=== PATIENT | male | born 1945 | race Caucasian/White ===

== ENCOUNTER 2018-02-21 16:17 | Inpatient (IN) | payer MEDICARE, OTHER ==
[2018-02-21 16:50] LABS: ADD MAN DIFF? NO
[2018-02-21 16:57] LABS: WHITE BLOOD COUNT 11.5 10^3/ul (4.8-10.8)
[2018-02-21 16:57] LABS: BASOPHILS % 0.3 % (0.0-2.0); EOSINOPHILS # 0.3 10^3/ul (0.0-0.5); EOSINOPHILS % 2.4 % (0.0-7.0); HEMATOCRIT 35.7 % (37.0-47.0); HEMOGLOBIN 11.7 g/dl (12.0-16.0); LYMPHOCYTES # 0.8 10^3/ul (0.8-2.9); LYMPHOCYTES % 6.6 % (15.0-51.0); MEAN CORPUSCULAR HEMOGLOBIN 32.6 pg (29.0-33.0); MEAN CORPUSCULAR HGB CONC 32.8 g/dl (32.0-37.0); MEAN CORPUSCULAR VOLUME 99.4 fl (82.0-101.0); MEAN PLATELET VOLUME 10.9 fl (7.4-10.4); MONOCYTE # 0.7 10^3/ul (0.3-0.9); MONOCYTES % 6.2 % (0.0-11.0); NEUTROPHIL # 9.6 10^3/ul (1.6-7.5); NEUTROPHILS % 84.2 % (39.0-77.0); PLATELET COUNT 144 10^3/UL (140-415); RED BLOOD COUNT 3.59 10^6/ul (4.20-5.40); RED CELL DISTRIBUTION WIDTH 12.4 % (11.5-14.5)
[2018-02-21] MEDS: CEFEPIME 2GM/50 ML (PMX) 50 ML IVPB (17:01)
[2018-02-21] MEDS: SODIUM CHLORIDE 0.9% 1L BAG IV* (17:01)
[2018-02-21 17:17] LABS: PROTIME 19.4 Sec (11.9-14.9); PT RATIO 1.5
[2018-02-21 17:18] LABS: PARTIAL THROMBOPLASTIN TIME 36.1 Sec (25.0-35.0)
[2018-02-21 17:18] LABS: LACTIC ACID 2.3 mmol/L (0.5-2.0)
[2018-02-21] MEDS: VANCOMYCIN 1 GM (PMX) 250 ML IVPB (17:46)
[2018-02-21] MEDS: ACETAMINOPHEN 325 MG TAB PO (17:59)
[2018-02-21 18:35] LABS: ALANINE AMINOTRANSFERASE 15 IU/L (13-69); ALBUMIN 3.7 g/dl (3.3-4.9); ALKALINE PHOSPHATASE 73 IU/L (42-121); ANION GAP 15 (8-16); ASPARTATE AMINO TRANSFERASE 14 IU/L (15-46); BILIRUBIN,INDIRECT 0.5 mg/dl (0-1.1); BILIRUBIN,TOTAL 0.5 mg/dl (0.2-1.3); BLOOD UREA NITROGEN 32 mg/dl (7-20); CARBON DIOXIDE 26 mmol/L (21-31); CHLORIDE 104 mmol/L (97-110); CREATININE 0.99 mg/dl (0.61-1.24); GLUCOSE 189 mg/dl (70-220); POTASSIUM 4.7 mmol/L (3.5-5.1); SODIUM 140 mmol/L (135-144); TOTAL PROTEIN 7.4 g/dl (6.1-8.1)
[2018-02-21 18:46] LABS: TROPONIN-I < 0.012 ng/ml (0.000-0.120)
[2018-02-21 21:20] LABS: URINE PH (Dip) POC 5.5 (5.0-8.5)
[2018-02-21 21:20] LABS: URINE BLOOD (Dip) POC 2+ (NEGATIVE); URINE KETONES (Dip) POC Negative (NEGATIVE); URINE LEUKOCYTE EST (Dip) POC Negative (NEGATIVE); URINE NITRITE (Dip) POC Negative (NEGATIVE); URINE TOTAL PROTEIN POC Negative (NEGATIVE)
[2018-02-21 22:01] LABS: LACTIC ACID 1.8 mmol/L (0.5-2.0)
[2018-02-21 22:09] LABS: ADD UMIC YES; UR ASCORBIC ACID NEGATIVE (NEGATIVE); UR BILIRUBIN (Dip) NEGATIVE (NEGATIVE); UR BLOOD (Dip) 2+ mg/dL (NEGATIVE); UR CLARITY CLEAR (CLEAR); UR COLOR YELLOW (YELLOW); UR GLUCOSE (Dip) 2+ mg/dL (NEGATIVE); UR KETONES (Dip) NEGATIVE (NEGATIVE); UR LEUKOCYTE ESTERASE (Dip) NEGATIVE Leu/ul (NEGATIVE); UR NITRITE (Dip) NEGATIVE (NEGATIVE); UR RBC 44 /HPF (0-5); UR SPECIFIC GRAVITY (Dip) 1.017 (1.003-1.030); UR TOTAL PROTEIN (Dip) NEGATIVE (NEGATIVE); UR UROBILINOGEN (Dip) NEGATIVE (NEGATIVE); UR WBC 0 /HPF (0-5)
[2018-02-21] MEDS ORDERED: SOD CHLORIDE 0.9% 1,000 ML IV (22:32)
[2018-02-21] MEDS: SOD CHLORIDE 0.9% 1,000 ML IV (22:40)
[2018-02-21] MEDS ORDERED: ONDANSETRON 4 MG INJ IV ×2 (23:00)
[2018-02-21] MEDS ORDERED: NACL 0.9% 3 ML SYG IV (23:00)
[2018-02-21] MEDS ORDERED: ACETAMINOPHEN 325 MG TAB PO ×2 (23:00)
[2018-02-21] MEDS ORDERED: morphine 2 MG INJ IV (23:00)
[2018-02-21] MEDS ORDERED: VANCOMYCIN IV PER PHARMACY XX (23:30)
[2018-02-22] MEDS: VANCOMYCIN 1 GM 250 ML IVPB ×2 (04:00→16:57)
[2018-02-22] MEDS: PIPER-TAZO 3.375 GM IV (PMX) 100 ML IVPB ×4 (05:25→16:57)
[2018-02-22 06:10] LABS: ADD MAN DIFF? NO
[2018-02-22 06:20] LABS: WHITE BLOOD COUNT 9.5 10^3/ul (4.8-10.8)
[2018-02-22 06:20] LABS: ABNORMAL IP MESSAGE 1; BASOPHILS % 0.3 % (0.0-2.0); EOSINOPHILS # 0.1 10^3/ul (0.0-0.5); EOSINOPHILS % 1.2 % (0.0-7.0); HEMATOCRIT 33.9 % (42.0-52.0); HEMOGLOBIN 11.1 g/dl (14.0-18.0); LYMPHOCYTES # 0.6 10^3/ul (0.8-2.9); LYMPHOCYTES % 5.9 % (15.0-51.0); MEAN CORPUSCULAR HEMOGLOBIN 32.6 pg (29.0-33.0); MEAN CORPUSCULAR HGB CONC 32.7 g/dl (32.0-37.0); MEAN CORPUSCULAR VOLUME 99.7 fl (82.0-101.0); MEAN PLATELET VOLUME 10.3 fl (7.4-10.4); MONOCYTE # 0.7 10^3/ul (0.3-0.9); MONOCYTES % 7.6 % (0.0-11.0); NEUTROPHILS % 84.5 % (39.0-77.0); PLATELET COUNT 129 10^3/UL (140-415); POSITIVE DIFF @See below; RED CELL DISTRIBUTION WIDTH 12.4 % (11.5-14.5)
[2018-02-22 06:54] LABS: ALANINE AMINOTRANSFERASE 14 IU/L (13-69); ALBUMIN 3.7 g/dl (3.3-4.9); ALBUMIN/GLOBULIN RATIO 1.08; ALKALINE PHOSPHATASE 72 IU/L (42-121); ANION GAP 11 (8-16); ASPARTATE AMINO TRANSFERASE 16 IU/L (15-46); BILIRUBIN,INDIRECT 0.6 mg/dl (0-1.1); BILIRUBIN,TOTAL 0.6 mg/dl (0.2-1.3); BLOOD UREA NITROGEN 25 mg/dl (7-20); CALCIUM 8.8 mg/dl (8.4-10.2); CARBON DIOXIDE 27 mmol/L (21-31); CHLORIDE 107 mmol/L (97-110); CHOL/HDL RATIO 5.6 RATIO; CHOLESTEROL 185 mg/dl (100-200); CREATININE 0.88 mg/dl (0.61-1.24); GLUCOSE 155 mg/dl (70-220); HDL CHOLESTEROL 33 mg/dl (31-75); LDL CHOLESTEROL,CALCULATED 136 mg/dl; MAGNESIUM 1.7 mg/dl (1.7-2.5); POTASSIUM 4.6 mmol/L (3.5-5.1); SODIUM 140 mmol/L (135-144); TOTAL PROTEIN 7.1 g/dl (6.1-8.1); TRIGLYCERIDES 81 mg/dl (0-149)
[2018-02-22 07:21] LABS: HEMOGLOBIN A1C 6.3 % (0-5.9)
[2018-02-22] MEDS: ASPIRIN (EC) 81 MG TAB PO (09:11)
[2018-02-22] MEDS: SOD CHLORIDE 0.9% 1,000 ML IV (12:58)
[2018-02-22] MEDS ORDERED: GUAIFENESIN/DM 5ML CUP PO (18:30)
[2018-02-22] MEDS ORDERED: ALBUTEROL 0.083% (NEB) 2.5 MG/3 ML AMP HHN (18:30)
[2018-02-22] MEDS ORDERED: NON-FORMULARY/PATIENT OWN MED (Quetiapine Fumarate* 50 MG) PO (21:00)
[2018-02-22] MEDS: AMLODIPINE 2.5 MG TAB PO (21:17)
[2018-02-22] MEDS: QUETIAPINE 25 MG TAB PO (21:17)
[2018-02-22] MEDS: hydrALAzine 20 MG INJ IV (21:18)
[2018-02-22] MEDS: METOPROLOL 25 MG TAB PO (22:30)
[2018-02-23] MEDS ORDERED: METOPROLOL 5 MG INJ IV (00:30)
[2018-02-23] MEDS: PIPER-TAZO 3.375 GM IV (PMX) 100 ML IVPB ×4 (00:50→17:57)
[2018-02-23] MEDS: SOD CHLORIDE 0.9% 1,000 ML IV ×2 (00:51→17:34)
[2018-02-23 03:38] LABS: ADD MAN DIFF? NO
[2018-02-23 04:04] LABS: WHITE BLOOD COUNT 5.9 10^3/ul (4.8-10.8)
[2018-02-23 04:05] LABS: ALANINE AMINOTRANSFERASE 12 IU/L (13-69); ALBUMIN 3.2 g/dl (3.3-4.9); ALBUMIN/GLOBULIN RATIO 0.96; ALKALINE PHOSPHATASE 58 IU/L (42-121); ANION GAP 10 (8-16); ASPARTATE AMINO TRANSFERASE 16 IU/L (15-46); BASOPHILS % 0.5 % (0.0-2.0); BILIRUBIN,INDIRECT 0.6 mg/dl (0-1.1); BILIRUBIN,TOTAL 0.6 mg/dl (0.2-1.3); BLOOD UREA NITROGEN 17 mg/dl (7-20); CALCIUM 8.6 mg/dl (8.4-10.2); CARBON DIOXIDE 25 mmol/L (21-31); CHLORIDE 107 mmol/L (97-110); CREATININE 0.76 mg/dl (0.61-1.24); EOSINOPHILS # 0.2 10^3/ul (0.0-0.5); EOSINOPHILS % 3.8 % (0.0-7.0); GLUCOSE 138 mg/dl (70-220); HEMATOCRIT 32.7 % (42.0-52.0); HEMOGLOBIN 10.9 g/dl (14.0-18.0); LYMPHOCYTES # 0.9 10^3/ul (0.8-2.9); LYMPHOCYTES % 15.2 % (15.0-51.0); MAGNESIUM 1.8 mg/dl (1.7-2.5); MEAN CORPUSCULAR HEMOGLOBIN 32.2 pg (29.0-33.0); MEAN CORPUSCULAR HGB CONC 33.3 g/dl (32.0-37.0); MEAN CORPUSCULAR VOLUME 96.5 fl (82.0-101.0); MEAN PLATELET VOLUME 10.7 fl (7.4-10.4); MONOCYTE # 0.8 10^3/ul (0.3-0.9); MONOCYTES % 13.8 % (0.0-11.0); NEUTROPHIL # 3.9 10^3/ul (1.6-7.5); NEUTROPHILS % 66.4 % (39.0-77.0); PHOSPHORUS 2.4 mg/dl (2.5-4.9); PLATELET COUNT 124 10^3/UL (140-415); POTASSIUM 3.6 mmol/L (3.5-5.1); RED BLOOD COUNT 3.39 10^6/ul (4.70-6.10); RED CELL DISTRIBUTION WIDTH 12.4 % (11.5-14.5); SODIUM 138 mmol/L (135-144); TOTAL PROTEIN 6.5 g/dl (6.1-8.1)
[2018-02-23 04:07] LABS: VANCOMYCIN,TROUGH 13.8 ug/ml (10.0-20.0)
[2018-02-23] MEDS: VANCOMYCIN 1 GM 250 ML IVPB ×2 (04:52→15:11)
[2018-02-23] MEDS: HALOPERIDOL 5 MG INJ IM (07:10)
[2018-02-23] MEDS ORDERED: AMLODIPINE 5 MG TAB PO (09:00)
[2018-02-23] MEDS: AMLODIPINE 2.5 MG TAB PO (09:09)
[2018-02-23] MEDS: METOPROLOL 25 MG TAB PO (09:10)
[2018-02-23] MEDS: FAMOTIDINE 20 MG TAB PO (09:10)
[2018-02-23] MEDS: ASPIRIN (EC) 81 MG TAB PO (09:10)
[2018-02-23] MEDS: ENOXAPARIN 40 MG/0.4 ML SYG SC (09:11)
[2018-02-23] MEDS: LACTOBACILLUS RHAMNOSUS CAP PO (22:33)
[2018-02-23] MEDS: QUETIAPINE 25 MG TAB PO (22:33)
[2018-02-24] MEDS: PIPER-TAZO 3.375 GM IV (PMX) 100 ML IVPB ×2 (00:09→06:22)
[2018-02-24] MEDS: VANCOMYCIN 1 GM 250 ML IVPB (04:30)
[2018-02-24 06:03] LABS: ADD MAN DIFF? NO
[2018-02-24 06:44] LABS: ALANINE AMINOTRANSFERASE 24 IU/L (13-69); ALBUMIN 3.3 g/dl (3.3-4.9); ALBUMIN/GLOBULIN RATIO 0.89; ALKALINE PHOSPHATASE 59 IU/L (42-121); ANION GAP 11 (8-16); ASPARTATE AMINO TRANSFERASE 20 IU/L (15-46); BILIRUBIN,INDIRECT 0.5 mg/dl (0-1.1); BILIRUBIN,TOTAL 0.5 mg/dl (0.2-1.3); BLOOD UREA NITROGEN 14 mg/dl (7-20); CALCIUM 8.9 mg/dl (8.4-10.2); CARBON DIOXIDE 27 mmol/L (21-31); CHLORIDE 107 mmol/L (97-110); CREATININE 0.83 mg/dl (0.61-1.24); GLUCOSE 102 mg/dl (70-220); MAGNESIUM 1.8 mg/dl (1.7-2.5); PHOSPHORUS 3.1 mg/dl (2.5-4.9); POTASSIUM 3.5 mmol/L (3.5-5.1); SODIUM 141 mmol/L (135-144)
[2018-02-24 07:02] LABS: WHITE BLOOD COUNT 5.3 10^3/ul (4.8-10.8)
[2018-02-24 07:02] LABS: BASOPHILS % 0.6 % (0.0-2.0); EOSINOPHILS # 0.3 10^3/ul (0.0-0.5); EOSINOPHILS % 5.5 % (0.0-7.0); HEMATOCRIT 33.2 % (42.0-52.0); LYMPHOCYTES # 1.3 10^3/ul (0.8-2.9); LYMPHOCYTES % 23.9 % (15.0-51.0); MEAN CORPUSCULAR HEMOGLOBIN 32.4 pg (29.0-33.0); MEAN CORPUSCULAR HGB CONC 33.1 g/dl (32.0-37.0); MEAN CORPUSCULAR VOLUME 97.6 fl (82.0-101.0); MEAN PLATELET VOLUME 10.4 fl (7.4-10.4); MONOCYTE # 0.8 10^3/ul (0.3-0.9); MONOCYTES % 15.4 % (0.0-11.0); NEUTROPHIL # 2.9 10^3/ul (1.6-7.5); NEUTROPHILS % 54.4 % (39.0-77.0); PLATELET COUNT 122 10^3/UL (140-415); RED CELL DISTRIBUTION WIDTH 12.4 % (11.5-14.5)
[2018-02-24] MEDS: SOD CHLORIDE 0.9% 1,000 ML IV (07:52)
[2018-02-24] MEDS: LACTOBACILLUS RHAMNOSUS CAP PO ×2 (09:25→21:17)
[2018-02-24] MEDS: FAMOTIDINE 20 MG TAB PO (09:25)
[2018-02-24] MEDS: ASPIRIN (EC) 81 MG TAB PO (09:25)
[2018-02-24] MEDS: METOPROLOL 25 MG TAB PO (09:25)
[2018-02-24] MEDS: AMLODIPINE 2.5 MG TAB PO (09:26)
[2018-02-24] MEDS: ENOXAPARIN 40 MG/0.4 ML SYG SC (09:27)
[2018-02-24] MEDS: QUETIAPINE 25 MG TAB PO (21:17)
[2018-02-25] MEDS: LEVOFLOXACIN 750 MG TABLET PO (06:28)
[2018-02-25] MEDS: LACTOBACILLUS RHAMNOSUS CAP PO ×2 (09:27→21:11)
[2018-02-25] MEDS: FAMOTIDINE 20 MG TAB PO (09:27)
[2018-02-25] MEDS: ASPIRIN (EC) 81 MG TAB PO (09:27)
[2018-02-25] MEDS: METOPROLOL 25 MG TAB PO (09:28)
[2018-02-25] MEDS: AMLODIPINE 2.5 MG TAB PO (09:28)
[2018-02-25] MEDS: ENOXAPARIN 40 MG/0.4 ML SYG SC (09:33)
[2018-02-25] MEDS ORDERED: morphine LIQ (10 MG/5 ML) CUP PO (15:30)
[2018-02-25] MEDS: QUETIAPINE 25 MG TAB PO (21:11)
[2018-02-26] MEDS: LEVOFLOXACIN 750 MG TABLET PO (06:14)
[2018-02-26] MEDS: ACETAMINOPHEN 325 MG TAB PO (09:43)
[2018-02-26] MEDS: AMLODIPINE 2.5 MG TAB PO (09:43)
[2018-02-26] MEDS: LACTOBACILLUS RHAMNOSUS CAP PO ×2 (09:43→20:46)
[2018-02-26] MEDS: FAMOTIDINE 20 MG TAB PO (09:44)
[2018-02-26] MEDS: METOPROLOL 25 MG TAB PO (09:44)
[2018-02-26] MEDS: ASPIRIN (EC) 81 MG TAB PO (09:44)
[2018-02-26] MEDS: ENOXAPARIN 40 MG/0.4 ML SYG SC (09:45)
[2018-02-26] MEDS: QUETIAPINE 25 MG TAB PO (20:46)
[2018-02-27] MEDS: LEVOFLOXACIN 750 MG TABLET PO (06:04)
[2018-02-27] MEDS: AMLODIPINE 10 MG TAB PO (08:09)
[2018-02-27] MEDS: ASPIRIN (EC) 81 MG TAB PO (08:09)
[2018-02-27] MEDS: LACTOBACILLUS RHAMNOSUS CAP PO (08:09)
[2018-02-27] MEDS: FAMOTIDINE 20 MG TAB PO (08:09)
[2018-02-27] MEDS: ENOXAPARIN 40 MG/0.4 ML SYG SC (08:10)
[2018-02-27] MEDS: METOPROLOL 25 MG TAB PO (08:10)
[2018-02-27] MEDS: BISACODYL (EC) 5 MG TAB PO (08:17)
[2018-02-27 15:57] LABS: MYCOPLASMA PNEUMONIAE AB (IGG) 3.79
[2018-02-27] MEDS ORDERED: METOPROLOL 25 MG TAB PO (21:00)
== END 2018-02-27 16:55 | DRG 871 ==
LOC: TEL 23:00 → 5EC 02-27 11:59 → E/R 16:17 → 5EC 02-23 19:00 → TEL 22:33
PROVIDERS: Family Medicine
DX: A41.9 Sepsis, unspecified organism (principal); J18.9 Pneumonia, unspecified organism; I48.2 Chronic atrial fibrillation; E11.9 Type 2 diabetes mellitus without complications; D64.9 Anemia, unspecified; F03.90 Unspecified dementia, unspecified severity, without behavioral disturbance, psychotic disturbance, mood disturbance, and anxiety; I10 Essential (primary) hypertension; R65.20 Severe sepsis without septic shock; F32.9 Major depressive disorder, single episode, unspecified; E78.5 Hyperlipidemia, unspecified; Y95 Nosocomial condition; Z79.82 Long term (current) use of aspirin; Z79.4 Long term (current) use of insulin; Z79.84 Long term (current) use of oral hypoglycemic drugs; Z91.81 History of falling; Z86.73 Personal history of transient ischemic attack (TIA), and cerebral infarction without residual deficits
CPT/HCPCS: 36415; 71045; 71250; 74176; 80053; 80061; 80202; 81001; 81003; 83036; 83605; 83735; 84100; 84439; 84443; 84480; 84484; 85025; 85610; 85730; 86403; 86738; 87040; 87086; 87275; 87276; 87279; 87280; 92610; 96374; 96375; 97110; 97116; 97162; 99291-25